=== PATIENT | male | born 1980 | race Caucasian/White ===

== ENCOUNTER 2018-04-06 07:15 | Emergency (ER) | payer OTHER, MEDICAID, SELFPAY ==
[2018-04-06 07:15] VITALS: BP 152/109; PULSE 91; RESP 16; TEMP 36.2; O2SAT 99; BMI 34.2
[2018-04-06 07:19] VITALS: O2SAT 99
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
[2018-04-06] MEDS: Diphth,Pertuss(Acell),Tet Vac 0.5 ML Vial IM (07:49)
[2018-04-06] MEDS: Ondansetron 4 MG/2 ML Vial IV (07:49)
[2018-04-06] MEDS: morphine 8 MG/ML Syringe IV (07:49)
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
[2018-04-06 08:31] VITALS: PULSE 87; RESP 14; O2SAT 99
[2018-04-06 08:42] VITALS: BP 121/74; PULSE 84; RESP 16; O2SAT 98
== END 2018-04-06 08:32 | disposition home or self-care (01) ==
PROVIDERS: Emergency Provider Emergency Medicine
DX: S32.019A Unspecified fracture of first lumbar vertebra, initial encounter for closed fracture (principal); S50.312A Abrasion of left elbow, initial encounter; V89.2XXA Person injured in unspecified motor-vehicle accident, traffic, initial encounter; Y93.9 Activity, unspecified; Y92.9 Unspecified place or not applicable; E66.9 Obesity, unspecified; F17.220 Nicotine dependence, chewing tobacco, uncomplicated
CPT/HCPCS: 72100; 90471; 90715; 96374; 96375; 99285; A4216; J2405